=== PATIENT | female | born 1965 | race Two or more races ===

== ENCOUNTER 2017-08-27 14:56 | Outpatient (CLI) | payer OTHER | END 2017-08-27 15:07 | disposition home or self-care (01) | LOC: MAMO-SONO 14:56 | DX: Z12.31 Encounter for screening mammogram for malignant neoplasm of breast (principal); Z80.3 Family history of malignant neoplasm of breast; N60.11 Diffuse cystic mastopathy of right breast; N60.12 Diffuse cystic mastopathy of left breast ==

== ENCOUNTER 2021-04-27 14:56 | Outpatient (CLI) | payer OTHER ==
[2021-04-27] MEDS ORDERED: COZAAR25 MG PO (17:41)
[2021-04-27] MEDS ORDERED: DICLOFENAC SODI75 MG PO (20:27)
== END 2021-04-27 15:07 | disposition home or self-care (01) ==
LOC: RAD 14:56
PROVIDERS: ATTEND Orthopaedic Surgery
DX: M25.562 Pain in left knee (principal); M25.572 Pain in left ankle and joints of left foot

== ENCOUNTER 2021-04-27 17:00 | Emergency (ER) | payer OTHER ==
[~2021-04-27] VITALS: Ht 162.6 cm; Wt 74.8 kg
[2021-04-27] MEDS ORDERED: COZAAR25 MG PO (17:41)
[2021-04-27] MEDS ORDERED: DICLOFENAC SODI75 MG PO (20:27)
== END 2021-04-27 22:29 | disposition home or self-care (01) ==
LOC: ER 17:00
DX: S93.492A Sprain of other ligament of left ankle, initial encounter (principal); W19.XXXA Unspecified fall, initial encounter; Y93.89 Activity, other specified; Y92.89 Other specified places as the place of occurrence of the external cause; Y99.8 Other external cause status

== ENCOUNTER → 2024-02-15 07:06 | Outpatient (CLI) | payer OTHER ==
[~2024-02-15 07:06] MED LIST: COZAAR25 MG PO; DICLOFENAC SODI75 MG PO
[2024-02-15 08:34] LABS: ALBUMIN 3.6 gm/dL (3.4-5.0); BILIRUBIN TOTAL 0.32 mg/dL (0.3-1.2); CALCIUM 9.6 mg/dL (8.5-10.1); CREATININE SERUM 1.13 mg/dL (0.55-1.02); GFR 49.12; GLOBULINA 3.4 G/DL (2.4-3.5); MAGNESIUM 2.2 mg/dL (1.8-2.4); PHOSPHOROUS 3.1 mg/dL (2.5-4.9); POTASSIUM 4.5 mEq/L (3.5-5.1)
[2024-03-03 07:06] LABS: VITAMIN K 0.64
== END | disposition home or self-care (01) ==
LOC: LAB 07:06
PROVIDERS: ATTEND Orthopaedic Surgery
DX: E55.9 Vitamin D deficiency, unspecified (principal); M85.9 Disorder of bone density and structure, unspecified; E56.1 Deficiency of vitamin K; E21.3 Hyperparathyroidism, unspecified; E88.89 Other specified metabolic disorders; M81.8 Other osteoporosis without current pathological fracture

== ENCOUNTER 2024-02-25 07:18 | Outpatient (CLI) | payer OTHER | END 2024-02-25 07:38 | disposition home or self-care (01) | LOC: MRI 07:18 → MAMO-SONO 07:18 | PROVIDERS: ATTEND Orthopaedic Surgery | DX: M25.562 Pain in left knee (principal); M23.92 Unspecified internal derangement of left knee; R92.2 Inconclusive mammogram; N64.51 Induration of breast; Z12.31 Encounter for screening mammogram for malignant neoplasm of breast; R10.30 Lower abdominal pain, unspecified; K59.04 Chronic idiopathic constipation; N83.00 Follicular cyst of ovary, unspecified side; N95.1 Menopausal and female climacteric states | CPT/HCPCS: 73721 ==

== ENCOUNTER 2024-02-25 10:52 | Outpatient (CLI) | payer OTHER ==
[2024-02-25 11:45] LABS: HEMATOCRIT 39.2 % (36.0-45.00); HEMOGLOBIN 12.9 g/dL (12.0-15.00); MEAN CELL VOLUME 78.6 fL (80.00-100.00); MEAN CORPUSCULAR HEMOGLOBIN 25.9 pg (27.00-32.0); PLATELET COUNT 334 K/uL (150-450); RED BLOOD COUNT 4.99 M/uL (4.00-6.00); RED CELL DISTRIBUTION WIDTH 14.5 % (11.5-14.5)
[2024-02-25 12:01] LABS: PH,URINE 6.5 (5.0-8.0); URINE APPEARANCE Clear; URINE BILIRRUBIN Negative (NEGATIVE); URINE BLOOD Negative; URINE COLOR Yellow; URINE GLUCOSE Negative (NEGATIVE); URINE LEUKOCYTE Negative; URINE NITRATE Negative; URINE PROTEIN Negative (NEGATIVE); URINE UROBILINOGEN 0.2 E.U./dl
[2024-02-25 12:02] LABS: URINE EPITHELIAL CELLS 6.6 uL (0.0-38.8); URINE RBC 4.5 uL (0.0-20.8)
[2024-02-25 12:32] LABS: T4 FREE 0.95 NG/ML (0.76-1.46); TSH 1.22 uIU/mL (0.358-3.74)
[2024-02-25 12:46] LABS: URINE WBC 1.6 uL (0.0-23.2)
[2024-02-27 09:07] LABS: CA 125 5.9 U/mL (0.0-38.1); FOLLICLE STIMULATING HORMONE 53.4 mIU/mL (25.8-134.8); LEUTEINIZING HORMONE 31.4 mIU/mL (7.7-58.5)
== END 2024-02-25 11:02 | disposition home or self-care (01) ==
LOC: LAB 10:52
DX: N03.9 Chronic nephritic syndrome with unspecified morphologic changes (principal); E05.00 Thyrotoxicosis with diffuse goiter without thyrotoxic crisis or storm; E55.9 Vitamin D deficiency, unspecified; N95.1 Menopausal and female climacteric states; N80.30 Endometriosis of pelvic peritoneum, unspecified; N83.209 Unspecified ovarian cyst, unspecified side; E78.9 Disorder of lipoprotein metabolism, unspecified; R97.1 Elevated cancer antigen 125 [CA 125]; R97.0 Elevated carcinoembryonic antigen [CEA]; G89.3 Neoplasm related pain (acute) (chronic)

== ENCOUNTER 2024-03-30 08:40 | Outpatient (CLI) | payer OTHER ==
[2024-03-30 09:28] LABS: HEMATOCRIT 39.9 % (36.0-45.00); HEMOGLOBIN 13.2 g/dL (12.0-15.00); MEAN CELL VOLUME 78.5 fL (80.00-100.00); MEAN CORPUSCULAR HGB CONC 33.1 g/dl (32.0-36.0); PLATELET COUNT 330 K/uL (150-450); RED BLOOD COUNT 5.08 M/uL (4.00-6.00)
[2024-03-30 09:29] LABS: URINE APPEARANCE Clear; URINE BILIRRUBIN Negative (NEGATIVE); URINE BLOOD Negative; URINE COLOR Yellow; URINE GLUCOSE Negative (NEGATIVE); URINE KETONE Negative (NEGATIVE); URINE LEUKOCYTE Negative; URINE NITRATE Negative; URINE PROTEIN Negative (NEGATIVE); URINE UROBILINOGEN 0.2 E.U./dl
[2024-03-30 09:34] LABS: URINE BACTERIA 27.7 uL (0.0-1933); URINE WBC 4.3 uL (0.0-23.2)
[2024-03-30 09:47] LABS: INR < 0.93; PARTIAL THROMBOPLASTIN TIME 28.2 SECONDS (22.0-34.0); PROTHROMBIN TIME 9.7 SECONDS (9.0-11.5)
[2024-03-30 09:59] LABS: COL ADP 58 SECONDS (56-102); COL EPI 77 SECONDS (82-175)
[2024-03-30 10:11] LABS: ALBUMIN 3.8 gm/dL (3.4-5.0); BILIRUBIN TOTAL 0.35 mg/dL (0.3-1.2); CALCIUM 9.9 mg/dL (8.5-10.1); CREATININE SERUM 1.18 mg/dL (0.55-1.02); GFR 46.72; GLOBULINA 3.5 G/DL (2.4-3.5); POTASSIUM 4.64 mEq/L (3.5-5.1); TOTAL PROTEIN 7.3 gm/dL (6.4-8.2)
[2024-03-30 10:36] LABS: URINE RBC 1.6 uL (0.0-20.8)
== END 2024-03-30 08:41 | disposition home or self-care (01) ==
LOC: LAB 08:40
PROVIDERS: ATTEND Orthopaedic Surgery
DX: D64.9 Anemia, unspecified (principal); D68.8 Other specified coagulation defects; Z39.0 Encounter for care and examination of mother immediately after delivery; E11.9 Type 2 diabetes mellitus without complications; E03.9 Hypothyroidism, unspecified; Z20.822 Contact with and (suspected) exposure to COVID-19; E55.9 Vitamin D deficiency, unspecified; Z76.89 Persons encountering health services in other specified circumstances; I10 Essential (primary) hypertension